=== PATIENT | male | born 1980 | race Caucasian/White ===

== ENCOUNTER 2017-04-02 08:53 | Observation (INO) | payer OTHER ==
[~2017-04-02] VITALS: Ht 175.3 cm; Wt 76.7 kg
[2017-04-02 11:00] LABS: HEMOGLOBIN 14.6 gm/dl (14.0-17.5); RED BLOOD COUNT 4.96 M/UL (4.20-5.50); WHITE BLOOD COUNT 9.1 K/UL (4.5-11.0)
[2017-04-02 11:15] LABS: BUN/CREATININE RATIO 14 (0-10)
[2017-04-03 05:27] LABS: HEMOGLOBIN 13.9 gm/dl (14.0-17.5); RED BLOOD COUNT 4.78 M/UL (4.20-5.50)
[2017-04-03 05:59] LABS: BUN/CREATININE RATIO 14 (0-10)
[2017-04-04 06:33] LABS: BUN/CREATININE RATIO 10 (0-10)
[2017-04-04 09:16] LABS: HEMOGLOBIN 13.7 gm/dl (14.0-17.5); RED BLOOD COUNT 4.65 M/UL (4.20-5.50); WHITE BLOOD COUNT 5.6 K/UL (4.5-11.0)
[2017-04-04] MEDS ORDERED: DOXYCYCLINE MO100 M1 PO (13:05)
== END 2017-04-04 13:45 | disposition home or self-care (01) ==
LOC: ER1 08:53 → M/S 15:31 → ZEROF 15:31 → M/S 17:01
PROVIDERS: Nurse Practitioner; Physician Assistant; ADMIT Orthopaedic Surgery
DX: M70.42 Prepatellar bursitis, left knee (principal)
CPT/HCPCS: 36415; 73564; 80048; 80202; 85025; 85027; 86140; 96374; 99284; G0378; J3370; J7070